=== PATIENT | female | born 1970 | race Asian ===

== ENCOUNTER 2020-07-28 07:54 | Inpatient (IN) | payer OTHER ==
[~2020-07-28] VITALS: Ht 157.5 cm; Wt 95.2 kg
[2020-07-28 09:18] LABS: Basophils # (auto) 0 10 ^3/uL (0-0.2); Basophils % (auto) 0.1 % (0.0-2.0); Eosinophils # (auto) 0 10 ^3/uL (0-0.8); Hematocrit 46.2 % (36.0-46.0); Hemoglobin 15.8 g/dL (12.2-16.2); Lymphocytes # (auto) 1.4 10 ^3/uL (0.4-5.4); Lymphocytes % (auto) 9.9 % (10.0-50.0); Mean Corpuscular Hemoglobin 33.1 pg (28.0-32.0); Mean Corpuscular Hgb Conc. 34.1 g/dL (32.0-36.0); Monocytes # (auto) 1.1 10 ^3/uL (0-1.3); Monocytes % (auto) 7.4 % (0.0-12.0); Neutrophils % (auto) 82.6 % (37.0-80.0); Nucleated Red Blood Cells % 0.2 %; Platelet Count (auto) 451 10^3/uL (140-450); Red Blood Cells 4.76 10^6/uL (4.0-5.20); Red Cell Distribution Width 12.4 % (11.8-14.3); White Blood Cell 14.6 10^3/uL (4.4-10.8)
[2020-07-28 09:31] LABS: Albumin 2.6 g/dL (3.4-5.0); BUN/Creatinine Ratio 22.9; Calcium 8.3 mg/dL (8.5-10.1)
[2020-07-28 09:36] LABS: Bilirubin, Total 0.6 mg/dL (0.2-1.0); Total Protein 8.1 g/dL (6.4-8.2)
[2020-07-28] MEDS ORDERED: ENOXAPARIN SOD 100 MG/1 ML SYRINGE SC ONE (10:45)
[2020-07-28] MEDS ORDERED: SODIUM CHLORIDE 0.9% 1,000 ML IV ONE (10:45)
[2020-07-28] MEDS ORDERED: ASPirin 81 mg TAB PO ONE (10:45)
[2020-07-28] MEDS ORDERED: InsuLIN REG 1unit/0.01ml Soln (100units/ml) IV ONE (10:45)
[2020-07-28] MEDS ORDERED: DexAMETHasone SOD PHOS 10MG/1ML VIAL INJ IV ONE (11:00)
[2020-07-28 11:30] LABS: CRP High Sensitivity 7.97 mg/dL (< 0.3)
[2020-07-28] MEDS ORDERED: DEXTROSE (50%) 50ML SYRG IV PRN (13:00)
[2020-07-28] MEDS ORDERED: ACETAMINOPHEN 500 MG TAB PO PRN (13:00)
[2020-07-28] MEDS ORDERED: MORPHINE SULF INJ 2 MG/ML SYRINGE 1ML IV PRN (13:00)
[2020-07-28] MEDS ORDERED: NITROGLYCERIN 0.4 MG SL TAB SL PRN (13:00)
[2020-07-28] MEDS ORDERED: AZITHROMYCIN 500MG/D5WorNS 250ml IV SCH (13:12)
[2020-07-28 13:50] LABS: Magnesium 2.5 mg/dL (1.6-2.6)
[2020-07-28] MEDS: ASCORBIC ACID 1,000 MG TAB PO SCH (14:14)
[2020-07-28] MEDS: ZINC SULFATE 220mg CAP or TAB PO SCH (14:14)
[2020-07-28] MEDS: CHOLECALCIFEROL (VITD3) 2,000 UNIT CAP PO SCH (14:14)
[2020-07-28] MEDS ORDERED: REMDESIVIR PER PHARMACY IV SCH (14:15)
[2020-07-28] MEDS: ALBUTEROL SULF HFA 90MCG INH 200DOSE IN SCH ×2 (14:50→21:13)
[2020-07-28] MEDS ORDERED: PRED20TA2 PO (14:53)
[2020-07-28] MEDS ORDERED: ALBUAER3 IN (14:53)
[2020-07-28] MEDS ORDERED: AMOX500C2 PO (14:53)
[2020-07-28] MEDS ORDERED: AZIT250T9 PO (14:55)
[2020-07-28] MEDS: cefTRIAXone 1GM/50ML D5W 50 ML IV SCH (16:02)
[2020-07-28] MEDS: ACCU-CHEK COMFORT CURVE STRIP VI SCH ×2 (17:53→22:00)
[2020-07-28] MEDS: InsuLIN REG 1unit/0.01ml Soln (100units/ml) SC SCH (18:01)
[2020-07-28] MEDS: BUDESONIDE (INHALATION) 180 MCG IH IN SCH (21:13)
[2020-07-28] MEDS: ENOXAPARIN SOD 40 MG/0.4 ML SYRINGE SC SCH (22:00)
[2020-07-28] MEDS: ATORVASTATIN 20 MG TAB PO SCH (22:00)
[2020-07-28] MEDS ORDERED: InsuLIN REG 1unit/0.01ml Soln (100units/ml) SC SCH (22:00)
[2020-07-29 01:39] LABS: Urine Bacteria FEW /hpf (None Seen); Urine Blood Negative /uL (Negative); Urine Budding Yeast LOADED /hpf (None Seen); Urine Hyaline Cast FEW /lpf (0 - 2); Urine Mucus FEW (None Seen); Urine Specific Gravity 1.037 (1.001-1.035); Urine WBC 40 /hpf (0 - 5)
[2020-07-29 05:08] LABS: Basophils # (auto) 0 10 ^3/uL (0-0.2); Eosinophils # (auto) 0 10 ^3/uL (0-0.8); Hematocrit 41.9 % (36.0-46.0); Hemoglobin 13.9 g/dL (12.2-16.2); Lymphocytes # (auto) 1.4 10 ^3/uL (0.4-5.4); Lymphocytes % (auto) 15.7 % (10.0-50.0); Mean Corpuscular Hemoglobin 32.4 pg (28.0-32.0); Mean Corpuscular Hgb Conc. 33.3 g/dL (32.0-36.0); Mean Corpuscular Volume 97.5 fL (80.0-100.0); Monocytes # (auto) 1.1 10 ^3/uL (0-1.3); Monocytes % (auto) 12.2 % (0.0-12.0); Neutrophils # (auto) 6.6 10 ^3/uL (1.6-8.6); Neutrophils % (auto) 72.1 % (37.0-80.0); Nucleated Red Blood Cells % 0.3 %; Platelet Count (auto) 427 10^3/uL (140-450); Red Cell Distribution Width 12.3 % (11.8-14.3); White Blood Cell 9.1 10^3/uL (4.4-10.8)
[2020-07-29 05:32] LABS: Albumin 2.3 g/dL (3.4-5.0); BUN/Creatinine Ratio 32.9; Potassium 4.1 mmol/L (3.5-5.1)
[2020-07-29 05:36] LABS: Bilirubin, Total 0.4 mg/dL (0.2-1.0)
[2020-07-29] MEDS: ALBUTEROL SULF HFA 90MCG INH 200DOSE IN SCH ×3 (06:00→20:43)
[2020-07-29] MEDS: BUDESONIDE (INHALATION) 180 MCG IH IN SCH ×2 (07:02→20:43)
[2020-07-29] MEDS: InsuLIN REG 1unit/0.01ml Soln (100units/ml) SC SCH ×4 (07:39→23:11)
[2020-07-29] MEDS: ACCU-CHEK COMFORT CURVE STRIP VI SCH ×4 (07:40→23:09)
[2020-07-29] MEDS: DexAMETHasone SOD PHOS 10MG/1ML VIAL INJ IV SCH (11:43)
[2020-07-29] MEDS: ASPirin 81 mg TAB PO SCH (11:43)
[2020-07-29] MEDS: cefTRIAXone 1GM/50ML D5W 50 ML IV SCH (11:43)
[2020-07-29] MEDS: ZINC SULFATE 220mg CAP or TAB PO SCH (11:43)
[2020-07-29] MEDS: ENOXAPARIN SOD 40 MG/0.4 ML SYRINGE SC SCH ×2 (11:44→23:19)
[2020-07-29] MEDS: CHOLECALCIFEROL (VITD3) 2,000 UNIT CAP PO SCH (11:44)
[2020-07-29] MEDS: ASCORBIC ACID 1,000 MG TAB PO SCH (11:44)
[2020-07-29] MEDS: AZITHROMYCIN 500MG/D5WorNS 250ml IV SCH (12:47)
[2020-07-29] MEDS ORDERED: DEXTROSE (50%) 50ML SYRG IV PRN (19:30)
--- NOTE | 2020-07-29 20:50 | NUR ---
pt arrived via wheel chair to [facility]. pt ambulated to hospital bed.
[2020-07-29 22:00] VITALS: BP_SYST 136; BP_SYST 138; BP_DIAS 59; BP_DIAS 66
[2020-07-29] MEDS ORDERED: INSULIN LANTUS (GLARGINE) 1 /0.01ml (100units/ml) SC SCH (22:00)
[2020-07-29] MEDS: ATORVASTATIN 20 MG TAB PO SCH (23:18)
[2020-07-30] VITALS (8 sets, daily range): BP systolic 105–138; BP diastolic 58–87
[2020-07-30] MEDS: InsuLIN REG 1unit/0.01ml Soln (100units/ml) SC SCH ×3 (06:19→17:25)
[2020-07-30] MEDS: ACCU-CHEK COMFORT CURVE STRIP VI SCH ×3 (06:20→17:21)
[2020-07-30] MEDS: ALBUTEROL SULF HFA 90MCG INH 200DOSE IN SCH (06:24)
[2020-07-30] MEDS: BUDESONIDE (INHALATION) 180 MCG IH IN SCH ×2 (06:24→20:13)
--- NOTE | 2020-07-30 07:00 | NUR ---
DR Pugh new orders received: CC diet
[2020-07-30 07:18] LABS: Basophils # (auto) 0 10 ^3/uL (0-0.2); Basophils % (auto) 0.1 % (0.0-2.0); Eosinophils # (auto) 0 10 ^3/uL (0-0.8); Hemoglobin 14.3 g/dL (12.2-16.2); Mean Corpuscular Hemoglobin 32.3 pg (28.0-32.0); Neutrophils % (auto) 75.6 % (37.0-80.0); Red Blood Cells 4.44 10^6/uL (4.0-5.20)
[2020-07-30 07:22] LABS: Hematocrit 43.2 % (36.0-46.0); Lymphocytes # (auto) 1.6 10 ^3/uL (0.4-5.4); Lymphocytes % (auto) 14.3 % (10.0-50.0); Mean Corpuscular Hgb Conc. 33.2 g/dL (32.0-36.0); Mean Corpuscular Volume 97.3 fL (80.0-100.0); Monocytes # (auto) 1.2 10 ^3/uL (0-1.3); Neutrophils # (auto) 8.7 10 ^3/uL (1.6-8.6); Platelet Count (auto) 481 10^3/uL (140-450); Red Cell Distribution Width 12.6 % (11.8-14.3); White Blood Cell 11.5 10^3/uL (4.4-10.8)
--- NOTE | 2020-07-30 07:42 | NUR ---
closing note pt is resting in semi fowlers with HOB at 30 degrees. no s/s of respiratory distress. pt is on 12Lnc. endorsed care to day shift RN Lillie.
[2020-07-30 07:47] LABS: BUN/Creatinine Ratio 38.5; Calcium 8.3 mg/dL (8.5-10.1); Potassium 3.6 mmol/L (3.5-5.1)
--- NOTE | 2020-07-30 08:00 | NUR ---
Received pt resting in bed, call light within reach, pt denies any pain or discomfort at this time, will continue to monitor pt.
[2020-07-30] MEDS ORDERED: FUROSEMIDE 40 MG/4 ML VIAL IV ONE (09:30)
[2020-07-30] MEDS: FUROSEMIDE 40 MG/4 ML VIAL IV SCH (10:00)
[2020-07-30] MEDS: ASPirin 81 mg TAB PO SCH (10:38)
[2020-07-30] MEDS: ASCORBIC ACID 1,000 MG TAB PO SCH (10:38)
[2020-07-30] MEDS: cefTRIAXone 1GM/50ML D5W 50 ML IV SCH (10:40)
[2020-07-30] MEDS: ENOXAPARIN SOD 40 MG/0.4 ML SYRINGE SC SCH ×2 (10:41→21:49)
[2020-07-30] MEDS: ZINC SULFATE 220mg CAP or TAB PO SCH (12:00)
[2020-07-30] MEDS: DexAMETHasone SOD PHOS 10MG/1ML VIAL INJ IV SCH (12:00)
[2020-07-30] MEDS: AZITHROMYCIN 500MG/D5WorNS 250ml IV SCH (12:00)
[2020-07-30] MEDS: CHOLECALCIFEROL (VITD3) 2,000 UNIT CAP PO SCH (12:01)
[2020-07-30] MEDS ORDERED: REMDESIVIR 200 MG in NS 210ml LOADING DOSE ADULT IV ONE (17:00)
--- NOTE | 2020-07-30 18:00 | NUR ---
Incentive spirometer given and educated on use and importance, pt verbalized understanding, returned demonstration done, pt able to do 500 ml.
[2020-07-30] MEDS ORDERED: POTASSIUM CHL 20 Meq TABLET PO ONE (18:45)
--- NOTE | 2020-07-30 18:47 | NUR ---
Remdesivir started at 1735, v/s taken, BP 127/73, HR 75, 15 min v/s taken at 1755 BP 119/68, HR 71, end of treatment at 1845, v/s taken, BP 132/75, HR 71, flushed line with 30 ml of saline, will continue to monitor pt.
[2020-07-30] MEDS: ATORVASTATIN 20 MG TAB PO SCH (21:49)
[2020-07-30] MEDS: INSULIN LANTUS (GLARGINE) 1 /0.01ml (100units/ml) SC SCH (21:50)
--- NOTE | 2020-07-30 23:33 | NUR ---
convalescent plasma began administration
--- NOTE | 2020-07-31 00:40 | NUR ---
convalescent plasma administration complete.
[2020-07-31 00:41] VITALS: BP 104/53
[2020-07-31] MEDS: ACCU-CHEK COMFORT CURVE STRIP VI SCH ×5 (00:55→23:10)
[2020-07-31] MEDS: InsuLIN REG 1unit/0.01ml Soln (100units/ml) SC SCH ×5 (01:20→23:13)
[2020-07-31 06:23] LABS: Potassium 3.6 mmol/L (3.5-5.1)
[2020-07-31 06:31] LABS: Albumin 2.4 g/dL (3.4-5.0); BUN/Creatinine Ratio 33.3; Bilirubin, Total 0.4 mg/dL (0.2-1.0); Calcium 8.1 mg/dL (8.5-10.1); Total Protein 6.8 g/dL (6.4-8.2)
[2020-07-31] MEDS: BUDESONIDE (INHALATION) 180 MCG IH IN SCH ×2 (06:38→22:06)
--- NOTE | 2020-07-31 07:30 | NUR ---
Opening Shift Note Assumed care of patient, awake and alert. No S/S of distress/SOB or pain. Instructed on POC and to call for assist PRN, will continue to monitor for changes Q1hr and PRN. Fall precautions in place per safety protocol.
--- NOTE | 2020-07-31 07:39 | NUR ---
closing note pt resting in semi fowlers with HOB at 30 degrees. no c/o pain or discomfort. no respiratory distress noted. endorsed care to day shift TORI Kam. Addendum: 07/31/20 at 0749 by Hina José RN also, pt is on 12 liters oxymizer.
[2020-07-31 08:59] VITALS: BP 125/61
[2020-07-31] MEDS: ALBUTEROL SULF HFA 90MCG INH 200DOSE IN PRN ×2 (09:21→22:06)
[2020-07-31] MEDS: DexAMETHasone SOD PHOS 10MG/1ML VIAL INJ IV SCH (09:22)
[2020-07-31] MEDS: cefTRIAXone 1GM/50ML D5W 50 ML IV SCH (09:22)
[2020-07-31] MEDS: FUROSEMIDE 40 MG/4 ML VIAL IV SCH (09:23)
[2020-07-31] MEDS: ASPirin 81 mg TAB PO SCH (09:23)
[2020-07-31] MEDS: ZINC SULFATE 220mg CAP or TAB PO SCH (09:23)
[2020-07-31] MEDS: POTASSIUM CHL 20 Meq TABLET PO SCH (09:24)
[2020-07-31] MEDS: ASCORBIC ACID 1,000 MG TAB PO SCH (09:24)
[2020-07-31] MEDS: CHOLECALCIFEROL (VITD3) 2,000 UNIT CAP PO SCH (09:24)
[2020-07-31] MEDS: INSULIN LANTUS (GLARGINE) 1 /0.01ml (100units/ml) SC SCH ×2 (09:26→23:13)
[2020-07-31] MEDS: ENOXAPARIN SOD 40 MG/0.4 ML SYRINGE SC SCH ×2 (09:26→23:10)
[2020-07-31] MEDS: AZITHROMYCIN 500MG/D5WorNS 250ml IV SCH (10:15)
[2020-07-31 13:01] VITALS: BP 141/74
--- NOTE | 2020-07-31 14:12 | NUR ---
Assessment Patient is a 49-year-old male. Unable to speak to patient. Assessment was completed with patient father Deniz Bowie . Prior to admission patient reside home with Deniz Bowie and family and functioned independently. Patient does not have any medical equipment now. Prior to admission patient was able to care for his own ADL's. Patient will return home to his prior living arrangements post discharge and family will transport him home. Informed Deniz Bowie he has the right to participate in all discharge planning. Denzi Bowie verbalized understanding. Addendum: 07/31/20 at 1416 by SANGEETA HUGHES Amended: Links added.
[2020-07-31 16:48] VITALS: BP 127/69
[2020-07-31] MEDS: REMDESIVIR 100 MG in SODIUM CHL 0.9% 250 ML IV SCH (17:23)
--- NOTE | 2020-07-31 18:12 | NUR ---
REMDESIVIR PRE-INFUSION BP:125/69 HR:75 15 MIN POST-INFUSION BP:130/79 HR:75
--- NOTE | 2020-07-31 18:53 | NUR ---
Remdesivir Post-transfusion BP:139/74 HR:73
[2020-07-31 22:00] VITALS: BP 142/75
[2020-07-31] MEDS: ATORVASTATIN 20 MG TAB PO SCH (23:10)
[2020-08-01 05:00] VITALS: BP 127/69
[2020-08-01] MEDS: InsuLIN REG 1unit/0.01ml Soln (100units/ml) SC SCH ×4 (06:00→23:00)
[2020-08-01] MEDS: ACCU-CHEK COMFORT CURVE STRIP VI SCH ×4 (06:20→22:58)
[2020-08-01] MEDS: BUDESONIDE (INHALATION) 180 MCG IH IN SCH ×2 (07:10→19:27)
--- NOTE | 2020-08-01 07:29 | NUR ---
closing note pt is on 3Lnc. no c/o pain or discomfort. no respiratory distress noted. endorsed care to day shift TORI Keene.
--- NOTE | 2020-08-01 07:45 | NUR ---
Opening note Assumed care of patient from NOC RN. No s/s of distress noted. Bed is in lowest locked position, call light within reach, and side rails up x2. Updated patient on plan of care and patient verbalized understanding. Will continue to monitor q1hr and PRN.
[2020-08-01 09:00] VITALS: BP 119/61
[2020-08-01] MEDS: cefTRIAXone 1GM/50ML D5W 50 ML IV SCH (11:02)
[2020-08-01] MEDS: DexAMETHasone SOD PHOS 10MG/1ML VIAL INJ IV SCH (11:03)
[2020-08-01] MEDS: FUROSEMIDE 40 MG/4 ML VIAL IV SCH (11:04)
[2020-08-01] MEDS: ASPirin 81 mg TAB PO SCH (11:05)
[2020-08-01] MEDS: ASCORBIC ACID 1,000 MG TAB PO SCH (11:05)
[2020-08-01] MEDS: POTASSIUM CHL 20 Meq TABLET PO SCH (11:05)
[2020-08-01] MEDS: ZINC SULFATE 220mg CAP or TAB PO SCH (11:05)
[2020-08-01] MEDS: CHOLECALCIFEROL (VITD3) 2,000 UNIT CAP PO SCH (11:06)
[2020-08-01] MEDS: ENOXAPARIN SOD 40 MG/0.4 ML SYRINGE SC SCH ×2 (11:06→22:58)
--- NOTE | 2020-08-01 11:30 | NUR ---
Nutrition Assessment Est energy needs 4185-9315 kcal (18-20 kcal/kg BW 95.2kg) Est protein needs 50-65g (1-1.3g/kg IBW 50kg) will monitor and reassess prn. Addendum: 08/01/20 at [address] Amended: Links added.
--- NOTE | 2020-08-01 11:35 | NUR ---
Physician rounding Dr. Jaeger at nurses station. Per MD she updated patient on plan of care and patient is possible D/C in the morning. Will continue to monitor.
[2020-08-01] MEDS: INSULIN LANTUS (GLARGINE) 1 /0.01ml (100units/ml) SC SCH ×2 (11:55→23:00)
[2020-08-01] MEDS: AZITHROMYCIN 500MG/D5WorNS 250ml IV SCH (11:59)
[2020-08-01 13:00] VITALS: BP 95/58
[2020-08-01 17:23] VITALS: BP 120/66
[2020-08-01 17:28] LABS: Basophils # (auto) 0 10 ^3/uL (0-0.2); Eosinophils # (auto) 0 10 ^3/uL (0-0.8); Monocytes # (auto) 0.4 10 ^3/uL (0-1.3)
[2020-08-01 17:30] LABS: Basophils % (auto) 0.1 % (0.0-2.0); Eosinophils % (auto) 0.2 % (0.0-7.0); Hemoglobin 15.1 g/dL (12.2-16.2); Lymphocytes # (auto) 1.2 10 ^3/uL (0.4-5.4); Lymphocytes % (auto) 12.6 % (10.0-50.0); Mean Corpuscular Hemoglobin 33.8 pg (28.0-32.0); Mean Corpuscular Volume 96.6 fL (80.0-100.0); Monocytes % (auto) 3.7 % (0.0-12.0); Neutrophils # (auto) 7.9 10 ^3/uL (1.6-8.6); Neutrophils % (auto) 83.4 % (37.0-80.0); Nucleated Red Blood Cells % 0.1 %; Platelet Count (auto) 521 10^3/uL (140-450); Red Blood Cells 4.45 10^6/uL (4.0-5.20); Red Cell Distribution Width 12.6 % (11.8-14.3); White Blood Cell 9.5 10^3/uL (4.4-10.8)
--- NOTE | 2020-08-01 17:50 | NUR ---
Remdesivir infusing Medication was started wt vitals of 120/66, 71bpm. 1805- 15MIN into administration vitals are 119/61, 70bpm. Patient is AOX4 no s/s of distress noted.
[2020-08-01] MEDS: REMDESIVIR 100 MG in SODIUM CHL 0.9% 250 ML IV SCH (17:57)
--- NOTE | 2020-08-01 19:00 | NUR ---
end of shift note Endorsed care to NOC RN. No s/s of distress noted.
--- NOTE | 2020-08-01 19:04 | NUR ---
post remdesivir Patient is AOX4 no s/s of distress noted. Vitals are 121/55, 82bpm. Will continue to monitor.
[2020-08-01] MEDS: ALBUTEROL SULF HFA 90MCG INH 200DOSE IN PRN (20:51)
[2020-08-01 22:46] VITALS: BP 120/61
[2020-08-01] MEDS: ATORVASTATIN 20 MG TAB PO SCH (22:57)
[2020-08-02 05:23] VITALS: BP 113/51
[2020-08-02] MEDS: InsuLIN REG 1unit/0.01ml Soln (100units/ml) SC SCH ×2 (06:00→12:55)
[2020-08-02 06:12] LABS: Basophils # (auto) 0 10 ^3/uL (0-0.2); Eosinophils # (auto) 0.1 10 ^3/uL (0-0.8)
[2020-08-02 06:15] LABS: Basophils % (auto) 0.2 % (0.0-2.0); Eosinophils % (auto) 0.8 % (0.0-7.0); Hematocrit 42.5 % (36.0-46.0); Hemoglobin 14.4 g/dL (12.2-16.2); Lymphocytes # (auto) 2.3 10 ^3/uL (0.4-5.4); Lymphocytes % (auto) 21.3 % (10.0-50.0); Mean Corpuscular Hgb Conc. 33.9 g/dL (32.0-36.0); Mean Corpuscular Volume 97.2 fL (80.0-100.0); Monocytes % (auto) 9.6 % (0.0-12.0); Neutrophils # (auto) 7.4 10 ^3/uL (1.6-8.6); Neutrophils % (auto) 68.1 % (37.0-80.0); Platelet Count (auto) 513 10^3/uL (140-450); Red Blood Cells 4.37 10^6/uL (4.0-5.20); Red Cell Distribution Width 12.5 % (11.8-14.3); White Blood Cell 10.8 10^3/uL (4.4-10.8)
[2020-08-02 06:28] LABS: Potassium 3.9 mmol/L (3.5-5.1)
[2020-08-02] MEDS: ACCU-CHEK COMFORT CURVE STRIP VI SCH ×2 (06:40→12:54)
[2020-08-02 06:42] LABS: Albumin 2.4 g/dL (3.4-5.0); BUN/Creatinine Ratio 27.4; Bilirubin, Total 0.4 mg/dL (0.2-1.0); Calcium 8.6 mg/dL (8.5-10.1); Total Protein 6.6 g/dL (6.4-8.2)
[2020-08-02] MEDS: BUDESONIDE (INHALATION) 180 MCG IH IN SCH (06:53)
--- NOTE | 2020-08-02 07:07 | NUR ---
closing note pt resting in left lateral position with HOB at 30 degrees. pt is on room air. o2 saturation is 93%. endorsed care to day shift TORI Keene.
--- NOTE | 2020-08-02 07:40 | NUR ---
opening note Assumed care of patient from NOC RN. Patient is AOX4 on room air, no s/s of distress noted. Bed is in lowest locked position, side rails up x2, and call light within reach. Updated patient on plan of care and patient verbalized understanding. Will continue to monitor.
[2020-08-02 08:57] VITALS: BP 129/51
[2020-08-02] MEDS: cefTRIAXone 1GM/50ML D5W 50 ML IV SCH (09:27)
[2020-08-02] MEDS: DexAMETHasone SOD PHOS 10MG/1ML VIAL INJ IV SCH (09:28)
[2020-08-02] MEDS: FUROSEMIDE 40 MG/4 ML VIAL IV SCH (09:29)
[2020-08-02] MEDS: ASPirin 81 mg TAB PO SCH (09:29)
[2020-08-02] MEDS: ZINC SULFATE 220mg CAP or TAB PO SCH (09:29)
[2020-08-02] MEDS: POTASSIUM CHL 20 Meq TABLET PO SCH (09:30)
[2020-08-02] MEDS: ASCORBIC ACID 1,000 MG TAB PO SCH (09:30)
[2020-08-02] MEDS: ENOXAPARIN SOD 40 MG/0.4 ML SYRINGE SC SCH (09:30)
[2020-08-02] MEDS: CHOLECALCIFEROL (VITD3) 2,000 UNIT CAP PO SCH (09:30)
[2020-08-02] MEDS: INSULIN LANTUS (GLARGINE) 1 /0.01ml (100units/ml) SC SCH (10:03)
--- NOTE | 2020-08-02 10:25 | NUR ---
Physician rounding Dr. Jaeger at nurses station. Per MD patient was updated on plan of care and D/C. Per MD prescriptions will be sent to patient pharmacy.
[2020-08-02] MEDS: AZITHROMYCIN 500MG/D5WorNS 250ml IV SCH (10:27)
[2020-08-02 12:30] VITALS: BP 108/46
[2020-08-02] MEDS ORDERED: ASCO10003 PO (13:41)
[2020-08-02] MEDS ORDERED: METH4PAK PO (13:42)
[2020-08-02] MEDS ORDERED: CHOL1CAP47 PO (13:42)
[2020-08-02] MEDS ORDERED: ZINC220T6 PO (13:42)
[2020-08-02] MEDS ORDERED: ASPI81CH43 PO (13:42)
[2020-08-02] MEDS ORDERED: PANT40TA2 PO (13:42)
[2020-08-02 14:19] VITALS: BP 108/46
[2020-08-02] MEDS: ALBUTEROL SULF HFA 90MCG INH 200DOSE IN PRN (14:21)
--- NOTE | 2020-08-02 14:25 | NUR ---
D/C NOTE Discharge instructions given as ordered. Encourage to follow up with PMD as instructed. All questions and concerns addressed. Patient verbalized understanding. IV removed with catheter intact, pressure dressing applied. Telemetry unit returned to ICU. Patient taken to vehicle via wheelchair with all personal belongings, accompanied by staff and family member. No distress noted at time of departure.
== END 2020-08-02 14:25 | disposition home or self-care (01) | DRG 177 ==
LOC: ER 07:54 → TELE 12:52 → TELE-CENTR 07-29 20:51
PROVIDERS: ADMIT Emergency Medicine; ATTEND Internal Medicine Nephrology
PROC: XW033E5 Introduction of Remdesivir Anti-infective into Peripheral Vein, Percutaneous Approach, New Technology Group 5 (ICD-10-PCS; principal; 2020-07-30)
PROC: XW13325 Transfusion of Convalescent Plasma (Nonautologous) into Peripheral Vein, Percutaneous Approach, New Technology Group 5 (ICD-10-PCS; 2020-07-30)
DX: U07.1 COVID-19 (principal); E43 Unspecified severe protein-calorie malnutrition; I21.4 Non-ST elevation (NSTEMI) myocardial infarction; J12.89 Other viral pneumonia; J96.01 Acute respiratory failure with hypoxia; E87.1 Hypo-osmolality and hyponatremia; E11.65 Type 2 diabetes mellitus with hyperglycemia; E66.01 Morbid (severe) obesity due to excess calories; Z68.38 Body mass index [BMI] 38.0-38.9, adult; E87.6 Hypokalemia; E88.09 Other disorders of plasma-protein metabolism, not elsewhere classified; I10 Essential (primary) hypertension
CPT/HCPCS: 36415; 71045; 80048; 80053; 80061; 81001; 82728; 82962; 83036; 83605; 83615; 83735; 83880; 84484; 84702; 85025; 85379; 86141; 86850; 86900; 86901; 87040; 87426; 87804; 93306; 94640; 96361; 96372; 96374; 96375; 99291; G0378; J0696; J1100; J1815

== ENCOUNTER → 2025-05-30 | Outpatient (CLI) | payer OTHER ==
[~2025-05-30] MED LIST: ALBUAER3 IN; ASCO10003 PO; ASPI81CH43 PO; CHOL1CAP47 PO; METH4PAK PO; PANT40TA2 PO; ZINC220T6 PO
[2025-05-30 09:13] LABS: Hematocrit 38.0 % (36.0-46.0); Hemoglobin 12.7 g/dL (12.2-16.2); Mean Corpuscular Hemoglobin 33.2 pg (28.0-32.0); Mean Corpuscular Volume 98.9 fL (80.0-100.0); Nucleated Red Blood Cells % 0.1 %
[2025-05-30 09:48] LABS: Urine Protein, UAD Negative (Negative)
[2025-05-30 10:10] LABS: Alanine Aminotransferase 22 U/L (7-40); Albumin 4.2 g/dL (3.2-4.8); Alkaline Phosphatase 65 U/L (46-116); Anion Gap 9 (5-15); BUN/Creatinine Ratio 12.5 (10.0-20.0); Bilirubin, Total 0.6 mg/dL (0.2-1.0); Blood Urea Nitrogen 10 mg/dL (9-23); Calcium 9.2 mg/dL (8.7-10.4); Carbon Dioxide 26 mmol/L (20-31); Chloride 105 mmol/L (98-107); Potassium 4.1 mmol/L (3.5-5.1); Sodium 140 mmol/L (136-145); Total Protein 7.5 g/dL (5.7-8.2)
[2025-05-30 10:12] LABS: Glucose 177 mg/dL (74-106)
== END | disposition home or self-care (01) ==
LOC: LAB 08:52
PROVIDERS: ATTEND Student in an Organized Health Care Education/Training Program
DX: I10 Essential (primary) hypertension (principal); E11.9 Type 2 diabetes mellitus without complications; R20.2 Paresthesia of skin; Z11.3 Encounter for screening for infections with a predominantly sexual mode of transmission
CPT/HCPCS: 36415; 80053; 81001; 82607; 83036; 85025; 86780